=== PATIENT | female | born 1950 | race Native Hawaiian/Other Pacific Islander ===

== ENCOUNTER 2016-09-17 13:20 | Emergency (ER) | payer MEDICAID ==
[2016-09-17] MEDS ORDERED: TETANUS/DIPHTHERIA/PERTUSSIS 0.5 ML SYRINGE IM ONE ×2 (14:01→14:06)
[2016-09-17] MEDS ORDERED: CEPHALEXIN 250 MG CAPSULE PO STA (14:01)
[2016-09-17] MEDS ORDERED: CEPHALEXIN 250 MG CAPSULE PO ONE (14:06)
--- NOTE | 2016-09-17 14:55 | ED Physician Documentation ---
History of Present Illness - Stated complaint Stated Complaint: LEFT TOE PX - Chief complaint Chief Complaint: Ext Problem - Additonal information Additional information: hx from daughter 66 diabetic who does not check her blood sugars nor wear the special shoes that have been recommended for her feet and does not take insulin because it makes her back hurt has a small ulcer on each great toe the left has been hurting for a month, she attributes to an injury but looks like an infection no fever Review of Systems Constitutional: denies: Fever Skin: reports: Lesions Musculoskeletal: reports: Pain with weight bearing PD PAST MEDICAL HISTORY - Past Medical History Cardiovascular: Hypertension, High cholesterol Respiratory: None Neuro: CVA, Peripheral neuropathy Endocrine/Autoimmune: Type 2 diabetes GI: None 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 : None HEENT: None, Chronic vision loss Psych: Anxiety Musculoskeletal: None Derm: None - Past Surgical History Past Surgical History: No General: Appendectomy HEENT: Cataracts - Present Medications Home Medications: Ambulatory Orders Medication Instructions Recorded Confirmed Aspirin [Aspir 81] 81 mg PO DAILY 07/06/12 09/17/16 Furosemide 20 mg PO BID 07/06/12 09/17/16 Metformin HCl [Glumetza] 1,000 mg PO BID 07/06/12 09/17/16 Lisinopril 5 mg PO DAILY 08/23/14 09/17/16 Simvastatin [Zocor] 40 mg PO DAILY 08/23/14 09/17/16 Pregabalin [Lyrica] 100 mg ORAL TID 12/17/14 09/17/16 Cephalexin [Keflex] 500 mg PO Q6H #28 capsule 09/17/16 Glipizide 5 mg PO DAILY 09/17/16 09/17/16 - Allergies Allergies/Adverse Reactions: Allergies Allergy/AdvReac Type Severity Reaction Status Date / Time No Known Drug Allergies Allergy Verified 01/02/16 20:48 - Social History Does the pt smoke?: No Smoking Status: Never smoker Does the pt drink ETOH?: No Does the pt have substance abuse?: No - Immunizations Immunizations are current?: Yes - POLST Patient has POLST: No PD ED PE NORMAL - Vitals Vital signs reviewed: Yes - Cardiac Cardiac: RRR - Respiratory Respiratory: No respiratory distress, Clear bilaterally - Extremities Extremities: Other (L great toe whith a shallow crusted ulcer to the plantar aspect distal phalange with surrounding erythema and TTP, no streaking) Results - Vitals Vitals: Vital Signs - 24 hr 09/17/16 09/17/16 13:28 15:46 Temperature 35.8 C L 36.4 C L Heart Rate 82 82 Respiratory 16 20 Rate Blood Pressure 101/67 100/68 O2 Saturation 98 100 Oxygen O2 Source [] Room air O2 Source Room air - Labs Labs: Laboratory Tests 09/17/16 14:09 POC Whole Bld Glucose 307 H - Rads (name of study) L toes Radiology: See rad report (no gas, no osteo, no fx. Per rad hyperlucency with sclerotic edge prox metaphysis 5th MT coul be a fracture vs bone cyst (this is not where pt hurts, her pain is the 1st toe)) Departure - Departure Disposition: 01 Home, Self Care Clinical Impression: Diabetic foot infection Hyperglycemia due to type 2 diabetes mellitus Qualifiers: Diabetes mellitus event security officer insulin use: with event security officer use Qualified Code(s): E11.65 - Type 2 diabetes mellitus with hyperglycemia Condition: Fair Instructions: Diabetic Foot Ulcer Dc, ED Foot Care Diabetic Follow-Up: [facility] [Provider Group] (this week for an ER follow up) Prescriptions: Cephalexin [Keflex] 500 mg PO Q6H #28 capsule Comments: Your blood sugars are poorly controlled and your left big toe ulcer is infected. This is a big problem You could lose your toe all together if this infection and your blood sugars are not aggressively managed Please take the antibiotics as prescribed Take your diabetes medications as prescribed And follow up with your PMD for a wound check this week Return sooner if worse
[2016-09-17 15:46] VITALS: BP 100/68
--- NOTE | 2016-09-17 16:01 | XRAY Report ---
EXAM: LEFT TOE RADIOGRAPHY EXAM DATE: 09/17/2016 02:43 PM. CLINICAL HISTORY: Diabetic great toe ulcer. COMPARISON: None. TECHNIQUE: 3 views. FINDINGS: Bones: No discrete bony erosive, bony detected lesion or fracture identified. Joints: No significant degenerative process. No subluxations. Soft Tissues: Diffuse first toe soft tissue swelling. IMPRESSION: No discrete bony lesion to suggest osteomyelitis; if clinical indicated, further evaluati on with IV constant enhanced MRI would be helpful. Note: Focal ill-defined hyperlucency with sclerotic edge in the proximal metaphysis of the fifth meta tarsal bone, approximately 0.8 x 1.3 cm a single AP view visualized, this may represent subacute frac ture versus nonspecific cystic bony lesion. If clinical warranted, dedicated foot x-ray follow-up is recommended. [facility] Referring Provider Line: [phone] SITE ID: [id number]
== END 2016-09-17 16:13 | disposition home or self-care (01) ==
LOC: ED 13:20
DX: E11.69 Type 2 diabetes mellitus with other specified complication (principal); L08.89 Other specified local infections of the skin and subcutaneous tissue; E11.65 Type 2 diabetes mellitus with hyperglycemia; E11.42 Type 2 diabetes mellitus with diabetic polyneuropathy; I10 Essential (primary) hypertension; Z79.84 Long term (current) use of oral hypoglycemic drugs; Z79.82 Long term (current) use of aspirin; Z86.73 Personal history of transient ischemic attack (TIA), and cerebral infarction without residual deficits; Z23 Encounter for immunization
CPT/HCPCS: 73660; 90471; 90715; 99283; 99284; A9270

== ENCOUNTER 2016-10-14 08:00 | Outpatient (CLI) | payer MEDICAID ==
[2016-10-14 19:28] LABS: BASOPHILS # (AUTO) 0.1 10^3/uL (0.0-0.1); BASOPHILS % (AUTO) 0.9 %; EOSINOPHILS # (AUTO) 0.1 10^3/uL (0.0-0.7); EOSINOPHILS % (AUTO) 0.8 %; HCT - HEMATOCRIT 37.7 % (37.0-47.0); HGB - HEMOGLOBIN 12.1 g/dL (12.0-16.0); LYMPHOCYTES # (AUTO) 3.4 10^3/uL (1.5-3.5); LYMPHOCYTES % (AUTO) 28.1 %; MEAN CORPUSCULAR HEMOGLOBIN 28.3 pg (27.0-31.0); MEAN CORPUSCULAR HGB CONC 32.2 g/dL (32.0-36.0); MEAN CORPUSCULAR VOLUME 87.8 fL (81.0-99.0); MEAN PLATELET VOLUME 7.9 fL (7.9-10.8); NEUTROPHILS # (AUTO) 7.4 10^3/uL (1.5-6.6); NEUTROPHILS % (AUTO) 62.2 %; NUCLEATED RED BLOOD CELLS AUTO 0.2 /100WBC; RED BLOOD COUNT 4.29 10^6/uL (4.20-5.40); RED CELL DISTRIBUTION WIDTH 13.7 % (12.0-15.0); UNCORRECTED WHITE BLOOD COUNT 11.9 x10^3/uL; WHITE BLOOD COUNT 11.9 x10^3/uL (4.8-10.8)
[2016-10-14 19:48] LABS: BILIRUBIN,TOTAL 0.7 mg/dL (0.2-1.0); BUN - BLOOD UREA NITROGEN 25 mg/dL (6-20); CALCIUM 8.9 mg/dL (8.5-10.3); CARBON DIOXIDE - CO2 25 mmol/L (21-32); CHLORIDE 108 mmol/L (101-111); CHOL/HDL RATIO 4.8 (<4.4); CHOLESTEROL 209 mg/dL; CREATININE 1.1 mg/dL (0.4-1.0); GFR - MDRD 50 (>89); GLUCOSE 235 mg/dL (70-100); HDL CHOLESTEROL 44 mg/dL; POTASSIUM 4.3 mmol/L (3.5-5.0); SODIUM 139 mmol/L (135-145); TOTAL PROTEIN 7.5 g/dL (6.7-8.2); TRIGLYCERIDES 166 mg/dL; VLDL CHOLESTEROL 33 mg/dL
[2016-10-14 20:19] LABS: THYROID STIMULATING HORMONE 0.21 uIU/mL (0.34-5.60)
[2016-10-14 20:21] LABS: HEMOGLOBIN A1C 1.39 g/dL
== END 2016-10-14 08:01 | disposition home or self-care (01) ==
LOC: LAB.N 08:00
PROVIDERS: ATTEND Nurse Practitioner Gerontology
DX: E11.40 Type 2 diabetes mellitus with diabetic neuropathy, unspecified (principal); I10 Essential (primary) hypertension; E04.1 Nontoxic single thyroid nodule
CPT/HCPCS: 36415; 80053; 80061; 83036; 84439; 84443; 85025

== ENCOUNTER 2017-01-16 08:50 | Outpatient (CLI) | payer MEDICAID ==
[2017-01-16 12:52] LABS: CALCIUM 8.8 mg/dL (8.5-10.3); CREATININE 1.2 mg/dL (0.4-1.0); POTASSIUM 3.5 mmol/L (3.5-5.0)
[2017-01-16 13:19] LABS: HEMOGLOBIN A1C 1.33 g/dL
== END 2017-01-16 08:51 | disposition home or self-care (01) ==
LOC: LAB.N 08:50
PROVIDERS: ATTEND Family Medicine
DX: E11.40 Type 2 diabetes mellitus with diabetic neuropathy, unspecified (principal)
CPT/HCPCS: 36415; 80048; 83036

== ENCOUNTER 2017-01-20 12:56 | Emergency (ER) | payer MEDICAID ==
[2017-01-20 13:15] VITALS: BP 128/80
[2017-01-20] MEDS ORDERED: MECLIZINE 12.5 MG TABLET PO STA (13:38)
[2017-01-20] MEDS ORDERED: SODIUM CHLORIDE 0.9% 1,000 ML IV ONE (13:38)
--- NOTE | 2017-01-20 13:41 | ED Physician Documentation ---
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 : None HEENT: None, Chronic vision loss Psych: Anxiety Musculoskeletal: None Derm: None - Past Surgical History Past Surgical History: No General: Appendectomy HEENT: Cataracts - Present Medications Home Medications: Ambulatory Orders Medication Instructions Recorded Confirmed Aspirin [Aspir 81] 81 mg PO DAILY 07/06/12 01/20/17 Furosemide 20 mg PO BID 07/06/12 01/20/17 Metformin HCl [Glumetza] 1,000 mg PO BID 07/06/12 01/20/17 Lisinopril 5 mg PO DAILY 08/23/14 01/20/17 Simvastatin [Zocor] 40 mg PO DAILY 08/23/14 01/20/17 Pregabalin [Lyrica] 100 mg ORAL TID 12/17/14 01/20/17 Cephalexin [Keflex] 500 mg PO Q6H #28 capsule 09/17/16 01/20/17 Glipizide 5 mg PO DAILY 09/17/16 01/20/17 Cephalexin [Keflex] 500 mg PO Q6H #28 capsule 01/20/17 - Allergies Allergies/Adverse Reactions: Allergies Allergy/AdvReac Type Severity Reaction Status Date / Time No Known Drug Allergies Allergy Verified 01/20/17 13:15 - Social History Does the pt smoke?: No Smoking Status: Never smoker Does the pt drink ETOH?: No Does the pt have substance abuse?: No - Immunizations Immunizations are current?: Yes - POLST Patient has POLST: No PD ED PE NORMAL - Vitals Vital signs reviewed: Yes - General General: Alert and oriented X 3 - HEENT HEENT: PERRL, EOMI - Neck Neck: Supple, no meningeal sign - Cardiac Cardiac: RRR - Respiratory Respiratory: No respiratory distress, Clear bilaterally - Abdomen Abdomen: Soft, Non tender - Derm Derm: Normal color - Neuro Neuro: Alert and oriented X 3, social media manager 2-12 intact, No motor deficit, No sensory deficit, Normal speech, Other (NIHSS zero) Results - Vitals Vitals: Vital Signs - 24 hr 01/20/17 13:08 Temperature 36.3 C L Heart Rate 83 Respiratory 16 Rate Blood Pressure 128/80 O2 Saturation 99 Oxygen O2 Source [] Room air O2 Source Room air - EKG (time done) 1354 Rate: Rate (enter#) Rhythm: NSR Intervals: Normal ND QRS: Normal Ischemia: Normal ST segments - Labs Labs: Laboratory Tests 01/20/17 01/20/17 01/20/17 13:13 14:30 14:30 WBC 13.0 H RBC 4.36 Hgb 12.8 Hct 37.7 MCV 86.5 MCH 29.4 MCHC 34.0 RDW 12.4 Plt Count 357 MPV 7.0 L Neut # 9.3 H Lymph # 2.5 [place] # 1.0 Eos # 0.1 Baso # 0.2 H Absolute Nucleated RBC 0.01 Nucleated RBC % 0.1 Sodium 136 Potassium 4.4 Chloride 101 Carbon Dioxide 26 Anion Gap 9.0 BUN 24 H Creatinine 1.0 Estimated GFR (MDRD) 55 L Glucose 213 H POC Whole Bld Glucose 224 H Calcium 9.4 Troponin I Urine Color Urine Clarity Urine pH Ur Specific [place] Urine Protein Urine Glucose (UA) Urine Ketones Urine Occult Blood Urine Nitrite Urine Bilirubin Urine Urobilinogen Ur Leukocyte Esterase Urine RBC Urine WBC Ur Squamous Epith Cells Urine Bacteria Ur Microscopic Review Urine Culture Comments 01/20/17 01/20/17 14:30 15:30 WBC RBC Hgb Hct MCV MCH MCHC RDW Plt Count MPV Neut # Lymph # [place] # Eos # Baso # Absolute Nucleated RBC Nucleated RBC % Sodium Potassium Chloride Carbon Dioxide Anion Gap BUN Creatinine Estimated GFR (MDRD) Glucose POC Whole Bld Glucose Calcium Troponin I < 0.04 Urine Color YELLOW Urine Clarity HAZY Urine pH 6.0 Ur Specific [place] 1.010 Urine Protein NEGATIVE Urine Glucose (UA) 100 H Urine Ketones NEGATIVE Urine Occult Blood NEGATIVE Urine Nitrite POSITIVE H Urine Bilirubin NEGATIVE Urine Urobilinogen 0.2 (NORMAL) Ur Leukocyte Esterase NEGATIVE Urine RBC 0-5 Urine WBC 11-25 H Ur Squamous Epith Cells FEW Squamous Urine Bacteria Many H Ur Microscopic Review INDICATED Urine Culture Comments INDICATED - Rads (name of study) CXR Radiology: See rad report (no acute) PD MEDICAL DECISION MAKING - ED course ED course: better with IVF and meclizine also UTI VS normal moises lives with her will road test and if safely ambulates will dc on antibiotics pt fid fine on road test Departure - Departure Disposition: Home, Self Care Clinical Impression: UTI (urinary tract infection) Qualifiers: Urinary tract infection type: acute cystitis Hematuria presence: without hematuria Qualified Code(s): N30.00 - Acute cystitis without hematuria Condition: Good Instructions: ED UTI Cystitis Female Prescriptions: Cephalexin [Keflex] 500 mg PO Q6H #28 capsule Comments: Your blood work and EKG were fine You exam does not suggest a stroke I think your weakness is caused by a urine infection Although you are weak, your vital signs are fine and you were able to safely walk in the ER. So I think you can go home on antibiotics. Rest as much as possible. You will be weak for a few more days so be very careful getting up and walking so you don't fall down. You might want to get a walker at the pharmacy for extra support Please follow up with your PMD Monday for a recheck Return if worse over the holiday weekend
--- NOTE | 2017-01-20 14:34 | XRAY Preliminary Report ---
Exam: XR CHEST 2 VIEW PA/LAT IMPRESSION: No acute disease. [facility] SITE ID: [id number]
[2017-01-20] MEDS ORDERED: MECLIZINE 12.5 MG TABLET PO ONE (14:35)
--- NOTE | 2017-01-20 14:37 | XRAY Report ---
EXAM: CHEST RADIOGRAPHY EXAM DATE: 01/20/2017 02:27 PM. CLINICAL HISTORY: Weakness. COMPARISON: 11/12/2014. TECHNIQUE: 2 views. FINDINGS: Lungs/Pleura: No definite localized infiltrate, consolidation, effusion, or pneumothorax. Mediastinum: Mild cardiomegaly, probably unchanged. Upper lobe vessels not distended. Other: Mild scoliosis, degenerative changes. IMPRESSION: No acute disease. [facility] Referring Provider Line: [phone] SITE ID: [id number]
[2017-01-20 14:41] LABS: BASOPHILS # (AUTO) 0.2 10^3/uL (0.0-0.1); BASOPHILS % (AUTO) 1.2 %; EOSINOPHILS # (AUTO) 0.1 10^3/uL (0.0-0.7); EOSINOPHILS % (AUTO) 0.5 %; HCT - HEMATOCRIT 37.7 % (37.0-47.0); HGB - HEMOGLOBIN 12.8 g/dL (12.0-16.0); LYMPHOCYTES # (AUTO) 2.5 10^3/uL (1.5-3.5); LYMPHOCYTES % (AUTO) 18.9 %; MEAN CORPUSCULAR HEMOGLOBIN 29.4 pg (27.0-31.0); MEAN CORPUSCULAR VOLUME 86.5 fL (81.0-99.0); MONOCYTES % (AUTO) 7.6 %; NEUTROPHILS # (AUTO) 9.3 10^3/uL (1.5-6.6); NEUTROPHILS % (AUTO) 71.8 %; NUCLEATED RED BLOOD CELLS AUTO 0.1 /100WBC; RED BLOOD COUNT 4.36 10^6/uL (4.20-5.40); RED CELL DISTRIBUTION WIDTH 12.4 % (12.0-15.0)
[2017-01-20 14:54] LABS: CALCIUM 9.4 mg/dL (8.5-10.3); POTASSIUM 4.4 mmol/L (3.5-5.0)
[2017-01-20 16:32] LABS: BILIRUBIN,URINE NEGATIVE (NEGATIVE)
[2017-01-20 16:33] LABS: UA w/ MICROSCOPIC CHARGE YES
[2017-01-20 16:48] LABS: UR CULTURE IF IND INDICATED
[2017-01-20] MEDS ORDERED: cephALEXin 250 MG CAPSULE PO STA (16:58)
== END 2017-01-20 17:40 | disposition home or self-care (01) ==
LOC: ED 12:56
DX: N30.00 Acute cystitis without hematuria (principal); R53.1 Weakness; I10 Essential (primary) hypertension; E11.42 Type 2 diabetes mellitus with diabetic polyneuropathy; Z79.84 Long term (current) use of oral hypoglycemic drugs; E78.00 Pure hypercholesterolemia, unspecified; Z86.73 Personal history of transient ischemic attack (TIA), and cerebral infarction without residual deficits; Z79.82 Long term (current) use of aspirin
CPT/HCPCS: 71020; 80048; 81001; 84484; 85025; 87077; 87086; 87181; 93005; 99283; 99284; A9270; 81003

== ENCOUNTER 2018-05-28 08:00 | Outpatient (CLI) | payer MEDICAID ==
[2018-05-28 12:41] LABS: BASOPHILS # (AUTO) 0.1 10^3/uL (0.0-0.1); BASOPHILS % (AUTO) 1.3 %; EOSINOPHILS # (AUTO) 0.4 10^3/uL (0.0-0.7); EOSINOPHILS % (AUTO) 3.7 %; HGB - HEMOGLOBIN 13.2 g/dL (12.0-16.0); LYMPHOCYTES % (AUTO) 31.4 %; MEAN CORPUSCULAR HEMOGLOBIN 28.6 pg (27.0-31.0); MEAN CORPUSCULAR HGB CONC 32.6 g/dL (32.0-36.0); MEAN CORPUSCULAR VOLUME 87.7 fL (81.0-99.0); MONOCYTES # (AUTO) 0.7 10^3/uL (0.0-1.0); MONOCYTES % (AUTO) 6.9 %; NEUTROPHILS # (AUTO) 5.5 10^3/uL (1.5-6.6); NEUTROPHILS % (AUTO) 56.7 %; PLT - PLATELET COUNT 358 10^3/uL (130-450); RED BLOOD COUNT 4.62 10^6/uL (4.20-5.40); RED CELL DISTRIBUTION WIDTH 13.1 % (12.0-15.0); WHITE BLOOD COUNT 9.6 x10^3/uL (4.8-10.8)
[2018-05-28 13:10] LABS: HB2 TOTAL 14.6 g/dL; HEMOGLOBIN A1C 2.12 g/dL; HEMOGLOBIN A1C % 15.4 % (4.6-6.2)
[2018-05-28 13:22] LABS: ALBUMIN 3.7 g/dL (3.2-5.5); ALBUMIN/GLOBULIN RATIO 0.8 (1.0-2.2); ALKALINE PHOSPHATASE 117 IU/L (42-121); ALT ALANINE AMINOTRANSFERASE 14 IU/L (10-60); AST ASPARTATE AMINOTRANSFERASE 16 IU/L (10-42); BILIRUBIN,TOTAL 0.8 mg/dL (0.2-1.0); BUN - BLOOD UREA NITROGEN 26 mg/dL (6-20); CALCIUM 9.3 mg/dL (8.5-10.3); CARBON DIOXIDE - CO2 25 mmol/L (21-32); CHLORIDE 96 mmol/L (101-111); CHOL/HDL RATIO 5.6 (<4.4); CHOLESTEROL 239 mg/dL; GFR - MDRD 55 (>89); HDL CHOLESTEROL 43 mg/dL; LDL CHOLESTEROL,CALCULATED 144 mg/dL; LDL/HDL RATIO 3.3 (<4.4); SODIUM 130 mmol/L (135-145); TOTAL PROTEIN 8.5 g/dL (6.7-8.2); VLDL CHOLESTEROL 52 mg/dL
[2018-05-28 13:23] LABS: GLUCOSE 505 mg/dL (70-100)
== END 2018-05-28 08:01 | disposition home or self-care (01) ==
LOC: LAB.N 08:00
PROVIDERS: ATTEND Nurse Practitioner Gerontology
DX: E04.1 Nontoxic single thyroid nodule (principal); I10 Essential (primary) hypertension; E11.9 Type 2 diabetes mellitus without complications
CPT/HCPCS: 36415; 80053; 80061; 83036; 83721; 84443; 85025

== ENCOUNTER 2019-01-28 14:33 | Outpatient (CLI) | payer MEDICAID ==
[2019-01-28 20:42] LABS: HB2 TOTAL 12.2 g/dL; HEMOGLOBIN A1C 0.93 g/dL; HEMOGLOBIN A1C % 9.1 % (4.6-6.2)
== END 2019-01-28 23:59 | disposition home or self-care (01) ==
LOC: LAB.N 14:33
PROVIDERS: ATTEND Nurse Practitioner Gerontology
DX: E11.40 Type 2 diabetes mellitus with diabetic neuropathy, unspecified (principal)
CPT/HCPCS: 36415; 83036

== ENCOUNTER 2019-08-15 15:42 | Emergency (ER) | payer MEDICAID ==
[2019-08-15] MEDS ORDERED: SODIUM CHLORIDE 0.9% 1,000 ML IV STA ×2 (16:27→18:24)
[2019-08-15] MEDS ORDERED: ACETAMINOPHEN 325 MG TABLET PO STA (16:27)
--- NOTE | 2019-08-15 16:33 | ED Physician Documentation ---
History of Present Illness - Stated complaint Stated Complaint: BODY PAIN / CHILLS - Chief complaint Chief Complaint: Neuro - History obtained from History obtained from: Patient, Family - History of Present Illness Timing: How many weeks ago (1) Pain level max: 4 Pain level now: 2 - Additonal information Additional information: 69-year-old female states that she has been ill for the past week. Her daughter is translating for her, they declined a formal wrong address clerk. She states that she started having fevers last night. Was seen at [facility] emergency department yesterday and started on Macrobid for a UTI. She has had a mild cough, some runny nose and congestion as well. Reportedly normal blood work yesterday and normal chest x-ray. She was seen in the clinic today and because she said that her neck was hurting, they sent her here for possible meningitis. Review of Systems Constitutional: reports: Fever (100.4). denies: Chills Nose: reports: Rhinorrhea / runny nose, Congestion Throat: denies: Sore throat Respiratory: reports: Cough (Mild, dry) GI: denies: Abdominal Pain, Nausea, Vomiting, Diarrhea : denies: Dysuria, Frequency, Hesitancy Skin: denies: Rash Musculoskeletal: reports: Neck pain (Occasionally has pain in her neck). denies: Back pain Neurologic: reports: Headache (Has had intermittent headaches over the past week). 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 : None HEENT: None, Chronic vision loss Psych: Anxiety Musculoskeletal: None Derm: None - Past Surgical History Past Surgical History: No General: Appendectomy HEENT: Cataracts - Present Medications Home Medications: Ambulatory Orders Medication Instructions Recorded Confirmed Aspirin [Aspir 81] 81 mg PO DAILY 07/06/12 01/20/17 Furosemide 20 mg PO BID 07/06/12 01/20/17 Metformin HCl [Glumetza] 1,000 mg PO BID 07/06/12 01/20/17 Simvastatin [Zocor] 40 mg PO DAILY 08/23/14 01/20/17 lisinopriL [Lisinopril] 5 mg PO DAILY 08/23/14 01/20/17 Pregabalin [Lyrica] 100 mg ORAL TID 12/17/14 01/20/17 Cephalexin [Keflex] 500 mg PO Q6H #28 capsule 09/17/16 01/20/17 Glipizide 5 mg PO DAILY 09/17/16 01/20/17 Cephalexin [Keflex] 500 mg PO Q6H #28 capsule 01/20/17 Cefdinir 300 mg PO BID #20 capsule 08/15/19 - Allergies Allergies/Adverse Reactions: Allergies Allergy/AdvReac Type Severity Reaction Status Date / Time No Known Drug Allergies Allergy Verified 08/15/19 16:01 - Social History Does the pt smoke?: No Smoking Status: Never smoker Does the pt drink ETOH?: No Does the pt have substance abuse?: No - Immunizations Immunizations are current?: Yes - POLST Patient has POLST: No PD ED PE NORMAL - Vitals Vital signs reviewed: Yes - General General: Alert and oriented X 3, No acute distress, Well developed/nourished - HEENT HEENT: Atraumatic, PERRL, Ears normal, Moist mucous membranes - Neck Neck: Supple, no meningeal sign, Other (Full range of motion. No nuchal rigidity. Able to touch her chin fully to her chest.) - Cardiac Cardiac: RRR, Strong equal pulses - Respiratory Respiratory: No respiratory distress, Clear bilaterally - Abdomen Abdomen: Soft, Non tender, Non distended - Back Back: No spinal TTP - Derm Derm: Warm and dry - Extremities Extremities: No edema, No calf tenderness / cord - Neuro Neuro: Alert and oriented X 3, statistical financial analyst 2-12 intact, No motor deficit, No sensory deficit, Normal speech Eye Opening: Spontaneous Motor: Obeys Commands Verbal: Oriented GCS Score: 15 - Psych Psych: Normal mood, Normal affect Results - Vitals Vitals: Vital Signs - 24 hr 08/15/19 08/15/19 08/15/19 15:57 17:51 19:14 Temperature 38.1 C H Heart Rate 88 83 80 Respiratory 22 24 14 Rate Blood Pressure 150/118 H 135/66 H 127/68 O2 Saturation 100 98 99 Oxygen O2 Source [With Activity] Room air O2 Source Room air - Labs Labs: Laboratory Tests 08/15/19 08/15/19 08/15/19 16:46 16:46 16:46 WBC 7.0 RBC 4.71 Hgb 13.3 Hct 41.8 MCV 88.7 MCH 28.2 MCHC 31.8 L RDW 12.2 Plt Count 222 MPV 9.4 Neut # (Auto) 4.5 Lymph # (Auto) 1.8 [place] # (Auto) 0.6 Eos # (Auto) 0.0 Baso # (Auto) 0.0 Absolute Nucleated RBC 0.00 Nucleated RBC % 0.0 PT 12.1 INR 1.1 APTT 32.3 Sodium 137 Potassium 4.2 Chloride 103 Carbon Dioxide 22 Anion Gap 12.0 BUN 25 H Creatinine 1.5 H Estimated GFR (MDRD) 34 L Glucose 148 H Lactic Acid Calcium 8.5 Total Bilirubin 0.7 AST 23 ALT 14 Alkaline Phosphatase 79 Total Protein 8.8 H Albumin 3.9 Globulin 4.9 H Albumin/Globulin Ratio 0.8 L Lipase 74 H Urine Color Urine Clarity Urine pH Ur Specific [place] Urine Protein Urine Glucose (UA) Urine Ketones Urine Occult Blood Urine Nitrite Urine Bilirubin Urine Urobilinogen Ur Leukocyte Esterase Urine RBC Urine WBC Ur Squamous Epith Cells Urine Bacteria Ur Microscopic Review Urine Culture Comments 08/15/19 08/15/19 16:46 17:31 WBC RBC Hgb Hct MCV MCH MCHC RDW Plt Count MPV Neut # (Auto) Lymph # (Auto) [place] # (Auto) Eos # (Auto) Baso # (Auto) Absolute Nucleated RBC Nucleated RBC % PT INR APTT Sodium Potassium Chloride Carbon Dioxide Anion Gap BUN Creatinine Estimated GFR (MDRD) Glucose Lactic Acid 1.2 Calcium Total Bilirubin AST ALT Alkaline Phosphatase Total Protein Albumin Globulin Albumin/Globulin Ratio Lipase Urine Color YELLOW Urine Clarity CLEAR Urine pH 5.5 Ur Specific [place] 1.020 Urine Protein 30 H Urine Glucose (UA) >=1000 H Urine Ketones 15 H Urine Occult Blood TRACE-INTA Urine Nitrite NEGATIVE Urine Bilirubin NEGATIVE Urine Urobilinogen 0.2 (NORMAL) Ur Leukocyte Esterase NEGATIVE Urine RBC 6-10 H Urine WBC 6-10 H Ur Squamous Epith Cells FEW Squamous Urine Bacteria Rare Ur Microscopic Review INDICATED Urine Culture Comments INDICATED PD MEDICAL DECISION MAKING - ED course Complexity details: reviewed old records, reviewed results, re-evaluated patient, considered differential, d/w patient ED course: Patient had a chest x-ray earlier in the day that was normal. Reviewed her records from [facility]. Given IV fluids here as well as IV Rocephin. Also given a normal. She feels much better. Tolerating p.o. without difficulty and asking for food. No evidence of sepsis. Blood cultures were drawn. We will change her from Macrobid to cefdinir. No evidence of meningitis. Patient and family counseled regarding signs and symptoms for which I believe and urgent re-evaluation would be necessary. Patient with good understanding of and agreement to plan and is comfortable going home at this time This document was made in part using voice recognition software. While efforts are made to proofread this document, sound alike and grammatical errors may occur. Patient states that she had a COVID swab yesterday at [facility]. Does not want this repeated Departure - Departure Disposition: Home, Self Care Clinical Impression: Fever Qualifiers: Fever type: unspecified Qualified Code(s): R50.9 - Fever, unspecified UTI (urinary tract infection) Qualifiers: Urinary tract infection type: acute cystitis Hematuria presence: without hematuria Qualified Code(s): N30.00 - Acute cystitis without hematuria Condition: Good Instructions: ED UTI Cystitis Female Follow-Up: Britney Gonzalez ARNP [Primary Care Provider] - Within 1 week Prescriptions: Cefdinir 300 mg PO BID #20 capsule Comments: You can stop the other antibiotic and start the new when we gave you tonight. You can pick this up tomorrow. Return if you worsen. Discharge Date/Time: 08/15/19 19:30
[2019-08-15 17:04] LABS: BASOPHILS % (AUTO) 0.3 %; EOSINOPHILS % (AUTO) 0.1 %; HGB - HEMOGLOBIN 13.3 g/dL (12.0-16.0); LYMPHOCYTES # (AUTO) 1.8 10^3/uL (1.5-3.5); MEAN CORPUSCULAR HEMOGLOBIN 28.2 pg (27.0-31.0); MEAN CORPUSCULAR HGB CONC 31.8 g/dL (32.0-36.0); MEAN CORPUSCULAR VOLUME 88.7 fL (81.0-99.0); MEAN PLATELET VOLUME 9.4 fL (7.9-10.8); MONOCYTES # (AUTO) 0.6 10^3/uL (0.0-1.0); MONOCYTES % (AUTO) 9.1 %; NEUTROPHILS # (AUTO) 4.5 10^3/uL (1.5-6.6); NEUTROPHILS % (AUTO) 64.1 %; PLT - PLATELET COUNT 222 10^3/uL (130-450); RED BLOOD COUNT 4.71 10^6/uL (4.20-5.40); RED CELL DISTRIBUTION WIDTH 12.2 % (12.0-15.0)
[2019-08-15 17:10] LABS: INR 1.1 (0.8-1.2); PT - PROTHROMBIN TIME 12.1 secs (9.9-12.6)
[2019-08-15 17:15] LABS: ALBUMIN 3.9 g/dL (3.2-5.5); ALBUMIN/GLOBULIN RATIO 0.8 (1.0-2.2); BILIRUBIN,TOTAL 0.7 mg/dL (0.2-1.0); CALCIUM 8.5 mg/dL (8.5-10.3); CREATININE 1.5 mg/dL (0.4-1.0); TOTAL PROTEIN 8.8 g/dL (6.7-8.2)
[2019-08-15 17:18] LABS: PARTIAL THROMBOPLASTIN TIME 32.3 secs (24.9-33.3)
[2019-08-15 17:41] LABS: BILIRUBIN,URINE NEGATIVE (NEGATIVE); GLUCOSE, URINE (UA) >=1000 mg/dL (NEGATIVE); KETONES,URINE (UA) 15 mg/dL (NEGATIVE); LEUKOCYTE ESTERASE, URINE NEGATIVE (NEGATIVE); NITRITE,URINE NEGATIVE (NEGATIVE); OCCULT BLOOD,URINE TRACE-INTA (NEGATIVE); PH,URINE 5.5 PH (5.0-7.5); PROTEIN,URINE 30 mg/dL (NEGATIVE); UROBILINOGEN,URINE 0.2 (NORMAL) E.U./dL (NORMAL)
[2019-08-15 17:46] LABS: BACTERIA,URINE Rare /HPF (None Seen); CLARITY,URINE CLEAR (CLEAR); SQUAMOUS EPITHELIAL CELL,UR FEW Squamous (<= Few)
[2019-08-15] MEDS ORDERED: cefTRIAXone 1 GM VIAL IVP STA (18:26)
[2019-08-15 19:15] VITALS: BP 127/68
== END 2019-08-15 19:30 | disposition home or self-care (01) ==
LOC: ED 15:42
DX: N30.00 Acute cystitis without hematuria (principal); R51 Headache; M54.2 Cervicalgia; R05 Cough; I10 Essential (primary) hypertension; E11.9 Type 2 diabetes mellitus without complications; Z79.84 Long term (current) use of oral hypoglycemic drugs; Z79.82 Long term (current) use of aspirin; R06.02 Shortness of breath
CPT/HCPCS: 36415; 71045; 80053; 81001; 83605; 83690; 85025; 85610; 85730; 87040; 87086; 96361; 96374; 99283; 99284; A9270; 81003

== ENCOUNTER 2019-11-11 13:17 | Outpatient (CLI) | payer MEDICAID ==
[2019-11-11 19:34] LABS: BUN - BLOOD UREA NITROGEN 21 mg/dL (6-20); CARBON DIOXIDE - CO2 26 mmol/L (21-32); CHLORIDE 103 mmol/L (101-111); CHOL/HDL RATIO 5.1 (<4.4); CHOLESTEROL 253 mg/dL; GLUCOSE 178 mg/dL (70-100); HDL CHOLESTEROL 50 mg/dL; LDL CHOLESTEROL,CALCULATED 131 mg/dL; LDL/HDL RATIO 2.6 (<4.4); SODIUM 138 mmol/L (135-145); VLDL CHOLESTEROL 72 mg/dL
[2019-11-11 19:36] LABS: CREATININE,URINE 43.2 mg/dL; MICROALBUM/CREATININE RATIO,UR 247.7 ug/mg (<30.0); MICROALBUMIN,URINE 10.7 mg/dL (0-300.0)
[2019-11-11 20:01] LABS: HEMOGLOBIN A1c% 9.3 % (4.27-6.07)
== END 2019-11-11 23:59 | disposition home or self-care (01) ==
LOC: LAB.WCP 13:17
PROVIDERS: ATTEND Family Medicine
DX: E11.9 Type 2 diabetes mellitus without complications (principal); E78.5 Hyperlipidemia, unspecified
CPT/HCPCS: 36415; 80048; 80061; 82043; 82570; 83036; 83721

== ENCOUNTER 2019-12-30 09:55 | Outpatient (CLI) | payer MEDICAID ==
[2019-12-30 12:11] LABS: CALCIUM 9.5 mg/dL (8.5-10.3); CREATININE 1.4 mg/dL (0.4-1.0)
== END 2019-12-30 23:59 | disposition home or self-care (01) ==
LOC: LAB.WCP 09:55
PROVIDERS: ATTEND Nurse Practitioner
DX: E11.9 Type 2 diabetes mellitus without complications (principal)
CPT/HCPCS: 36415; 80048

== ENCOUNTER 2020-08-24 14:31 | Outpatient (CLI) | payer MEDICAID ==
[2020-08-24 17:59] LABS: BASOPHILS # (AUTO) 0.1 10^3/uL (0.0-0.1); BASOPHILS % (AUTO) 1.2 %; EOSINOPHILS # (AUTO) 0.1 10^3/uL (0.0-0.7); EOSINOPHILS % (AUTO) 1.4 %; HCT - HEMATOCRIT 37.2 % (37.0-47.0); HGB - HEMOGLOBIN 11.7 g/dL (12.0-16.0); LYMPHOCYTES # (AUTO) 3.4 10^3/uL (1.5-3.5); LYMPHOCYTES % (AUTO) 33.7 %; MEAN CORPUSCULAR HEMOGLOBIN 28.7 pg (27.0-31.0); MEAN CORPUSCULAR HGB CONC 31.5 g/dL (32.0-36.0); MEAN CORPUSCULAR VOLUME 91.2 fL (81.0-99.0); MEAN PLATELET VOLUME 9.9 fL (7.9-10.8); MONOCYTES # (AUTO) 0.7 10^3/uL (0.0-1.0); MONOCYTES % (AUTO) 6.6 %; NEUTROPHILS # (AUTO) 5.7 10^3/uL (1.5-6.6); NEUTROPHILS % (AUTO) 56.4 %; PLT - PLATELET COUNT 353 10^3/uL (130-450); RED BLOOD COUNT 4.08 10^6/uL (4.20-5.40); RED CELL DISTRIBUTION WIDTH 12.7 % (12.0-15.0)
[2020-08-24 18:24] LABS: ALBUMIN 3.6 g/dL (3.2-5.5); ALBUMIN/GLOBULIN RATIO 0.9 (1.0-2.2); ALKALINE PHOSPHATASE 87 IU/L (42-121); ALT ALANINE AMINOTRANSFERASE 11 IU/L (10-60); AST ASPARTATE AMINOTRANSFERASE 15 IU/L (10-42); BILIRUBIN,TOTAL 0.4 mg/dL (0.2-1.0); BUN - BLOOD UREA NITROGEN 33 mg/dL (6-20); CALCIUM 8.9 mg/dL (8.5-10.3); CARBON DIOXIDE - CO2 23 mmol/L (21-32); CHLORIDE 103 mmol/L (101-111); CHOL/HDL RATIO 6.3 (<4.4); CHOLESTEROL 247 mg/dL; CREATININE 1.7 mg/dL (0.4-1.0); GFR - MDRD 30 (>89); GLUCOSE 243 mg/dL (70-100); HDL CHOLESTEROL 39 mg/dL; LDL CHOLESTEROL,CALCULATED 164 mg/dL; LDL/HDL RATIO 4.2 (<4.4); POTASSIUM 5.7 mmol/L (3.5-5.0); SODIUM 136 mmol/L (135-145); TOTAL PROTEIN 7.7 g/dL (6.7-8.2); TRIGLYCERIDES 221 mg/dL; VLDL CHOLESTEROL 44 mg/dL
[2020-08-24 18:31] LABS: THYROID STIMULATING HORMONE 0.28 uIU/mL (0.34-5.60)
[2020-08-24 19:31] LABS: FREE T4 (FREE THYROXINE) 1.29 ng/dL (0.58-1.64)
[2020-08-24 20:59] LABS: ESTIMATED AVERAGE GLUCOSE 258 mg/dL (70-100); HEMOGLOBIN A1c% 10.6 % (4.27-6.07)
== END 2020-08-24 14:32 | disposition home or self-care (01) ==
LOC: LAB.N 14:31
PROVIDERS: ATTEND Family Medicine
DX: E11.9 Type 2 diabetes mellitus without complications (principal)
CPT/HCPCS: 36415; 80053; 80061; 82043; 82570; 83036; 83721; 84439; 84443; 85025

== ENCOUNTER 2020-09-04 08:00 | Outpatient (CLI) | payer MEDICAID ==
[2020-09-04 17:52] LABS: CREATININE,URINE 111.4 mg/dL; MICROALBUM/CREATININE RATIO,UR 52.1 ug/mg (<30.0); MICROALBUMIN,URINE 5.8 mg/dL (0-300.0)
== END 2020-09-04 23:59 | disposition home or self-care (01) ==
LOC: LAB.WCP 08:00
PROVIDERS: ATTEND Family Medicine
DX: E11.9 Type 2 diabetes mellitus without complications (principal)
CPT/HCPCS: 82043; 82570

== ENCOUNTER 2021-01-12 15:45 | Outpatient (CLI) | payer MEDICAID ==
[2021-01-12 18:39] LABS: CREATININE,URINE 192.4 mg/dL; MICROALBUMIN,URINE 12.9 mg/dL (0-300.0)
[2021-01-12 18:43] LABS: CALCIUM 9.9 mg/dL (8.5-10.3); CREATININE 1.3 mg/dL (0.4-1.0); POTASSIUM 4.8 mmol/L (3.5-5.0)
[2021-01-12 21:35] LABS: ESTIMATED AVERAGE GLUCOSE 286 mg/dL (70-100); HEMOGLOBIN A1c% 11.6 % (4.27-6.07)
== END 2021-01-12 23:59 ==
LOC: LAB.N 15:45
PROVIDERS: ATTEND Physician Assistant
DX: E11.40 Type 2 diabetes mellitus with diabetic neuropathy, unspecified (principal); L29.9 Pruritus, unspecified
CPT/HCPCS: 36415; 80048; 82043; 82570; 83036; 87070; 87181; 87205

== ENCOUNTER 2021-04-06 08:30 | Day surgery (SDC) | payer MEDICAID ==
[2021-04-06] MEDS ORDERED: LACTATED RINGERS 1,000 ML IV ONE ×2 (09:00→10:54)
--- NOTE | 2021-04-06 09:40 | ANESTHESIA ---
Pre-Anesthesia VS, & Labs - Diagnosis screening - Procedure colonoscopy Vital Signs: Temp Pulse Resp BP Pulse Ox 36.6 C 89 16 158/79 H 100 04/06/21 08:00 04/06/21 08:00 04/06/21 08:00 04/06/21 08:00 04/06/21 08:00 Height: 5 ft 6 in Weight (kg): 76.5 kg Body Mass Index: 27.2 BMI Classification: Overweight - NPO >8 hours Last Fluid Intake: am prep - Is Patient ?: No - Lab Results Current Lab Results: Laboratory Tests 04/06/21 09:00: POC Whole Bld Glucose 106 H Lab results reviewed: Yes Home Medications and Allergies Aspirin [Aspir 81] 81 mg PO DAILY 07/06/12 Furosemide 20 mg PO BID 07/06/12 Metformin HCl [Glumetza] 1,000 mg PO BID 07/06/12 Simvastatin [Zocor] 40 mg PO DAILY 08/23/14 lisinopriL [Lisinopril] 5 mg PO DAILY 08/23/14 Pregabalin [Lyrica] 100 mg ORAL TID 12/17/14 glipiZIDE [Glipizide] 5 mg PO DAILY 09/17/16 Allergies/Adverse Reactions: Allergies Allergy/AdvReac Type Severity Reaction Status Date / Time No Known Drug Allergies Allergy Verified 08/15/19 16:01 Anes History & Medical History - Anesthetic History Anesthesia Complications: reports: No previous complications Family history of Anesthesia Complications: Denies Family history of Malignant Hyperthermia: Denies - Medical History Cardiovascular: reports: Hypertension, High cholesterol Pulmonary: reports: None Gastrointestinal: reports: None Urinary: reports: None Musculoskeletal: reports: None Endocrine/Autoimmune: reports: Type 2 diabetes, HyPOthyroidism Blood Disorders: reports: None Skin: reports: None Smoking Status: Never smoker - Surgical History General: reports: Cholecystectomy Eyes Ears Nose Throat (EENT): reports: Cataracts Exam General: Alert, Oriented x3, Cooperative Dental: Dentures full Upper, Dentures full Lower Mouth Openin Fingerbreadth Neck Mobility: Normal Mallampati classification: II Thyromental Distance: 4-6 cm Respiratory: Lungs clear, Normal breath sounds, No respiratory distress Cardiovascular: Regular rate Neurological: Normal speech Mental/Cognitive Status: Alert/Oriented X3, Normal for patient Cognitive Status: Within normal limits Plan Anesthesia Type: Total IV Consent for Procedure(s) Verified and Reviewed: Yes Code Status: Attempt Resuscitation ASA classification: 2-Mild systemic disease Is this case an emergency?: No
[2021-04-06] MEDS ORDERED: PROPOFOL 500 MG/50 ML 500 MG/50 ML VIAL ONE (09:54)
--- NOTE | 2021-04-06 11:38 | ANESTHESIA POST OP EVALUATION ---
Anesthesia Post Eval - Post Anesthesia Eval Vitals: Last Vital Signs Temp 36.1 C L 04/06/21 10:54 Pulse 82 04/06/21 10:54 Resp 14 04/06/21 10:54 BP 107/60 04/06/21 10:54 Pulse Ox 100 04/06/21 10:54 CV Function Including HR & BP: Stable Pain Control: Satisfactory Nausea & Vomiting: Negative Mental Status: Baseline Respiratory Status: Airway Patent Hydration Status: Satisfactory Anesthesia Complications: None
[2021-04-06 11:59] VITALS: BP 151/83
== END 2021-04-06 08:31 | disposition home or self-care (01) ==
LOC: SDS 08:30
PROVIDERS: ATTEND Surgery
DX: Z12.11 Encounter for screening for malignant neoplasm of colon (principal); E11.22 Type 2 diabetes mellitus with diabetic chronic kidney disease; E11.65 Type 2 diabetes mellitus with hyperglycemia; I12.9 Hypertensive chronic kidney disease with stage 1 through stage 4 chronic kidney disease, or unspecified chronic kidney disease; N18.30 Chronic kidney disease, stage 3 unspecified; Z79.4 Long term (current) use of insulin; Z79.899 Other long term (current) drug therapy
CPT/HCPCS: 45378; J7120

== ENCOUNTER 2021-08-23 11:48 | Outpatient (CLI) | payer MEDICAID ==
[2021-08-23 17:55] LABS: CALCIUM 9.2 mg/dL (8.5-10.3); CREATININE 1.2 mg/dL (0.4-1.0); POTASSIUM 4.4 mmol/L (3.5-5.0)
[2021-08-23 18:19] LABS: MICROALBUM/CREATININE RATIO,UR 242.3 ug/mg (<30.0); MICROALBUMIN,URINE 39.5 mg/dL (0-300.0)
[2021-08-23 18:57] LABS: ESTIMATED AVERAGE GLUCOSE 143 mg/dL (70-100); HEMOGLOBIN A1c% 6.6 % (4.27-6.07)
== END 2021-08-23 11:49 | disposition home or self-care (01) ==
LOC: LAB.N 11:48
PROVIDERS: ATTEND Nurse Practitioner
DX: I50.31 Acute diastolic (congestive) heart failure (principal); E11.40 Type 2 diabetes mellitus with diabetic neuropathy, unspecified
CPT/HCPCS: 36415; 80048; 82043; 82570; 83036

== ENCOUNTER 2022-07-19 15:45 | Outpatient (CLI) | payer MEDICAID ==
[2022-07-19 17:52] LABS: BASOPHILS # (AUTO) 0.1 10^3/uL (0.0-0.1); BASOPHILS % (AUTO) 1.5 %; EOSINOPHILS # (AUTO) 0.1 10^3/uL (0.0-0.7); EOSINOPHILS % (AUTO) 1.4 %; HCT - HEMATOCRIT 36.2 % (37.0-47.0); HGB - HEMOGLOBIN 11.2 g/dL (12.0-16.0); LYMPHOCYTES % (AUTO) 26.9 %; MEAN CORPUSCULAR HEMOGLOBIN 26.9 pg (27.0-31.0); MEAN CORPUSCULAR HGB CONC 30.9 g/dL (32.0-36.0); MEAN CORPUSCULAR VOLUME 86.8 fL (81.0-99.0); MEAN PLATELET VOLUME 9.7 fL (7.9-10.8); MONOCYTES # (AUTO) 0.6 10^3/uL (0.0-1.0); MONOCYTES % (AUTO) 7.5 %; NEUTROPHILS # (AUTO) 4.6 10^3/uL (1.5-6.6); NEUTROPHILS % (AUTO) 62.3 %; PLT - PLATELET COUNT 249 10^3/uL (130-450); RED BLOOD COUNT 4.17 10^6/uL (4.20-5.40); RED CELL DISTRIBUTION WIDTH 17.1 % (12.0-15.0); WHITE BLOOD COUNT 7.3 x10^3/uL (4.8-10.8)
[2022-07-19 18:14] LABS: ALBUMIN 3.4 g/dL (3.2-5.5); ALBUMIN/GLOBULIN RATIO 0.7 (1.0-2.2); ALKALINE PHOSPHATASE 122 IU/L (42-121); ALT ALANINE AMINOTRANSFERASE 24 IU/L (10-60); AST ASPARTATE AMINOTRANSFERASE 43 IU/L (10-42); BILIRUBIN,TOTAL 1.3 mg/dL (0.2-1.0); BUN - BLOOD UREA NITROGEN 36 mg/dL (6-20); CARBON DIOXIDE - CO2 23 mmol/L (21-32); CHLORIDE 108 mmol/L (101-111); CHOL/HDL RATIO 3.2 (<4.4); CHOLESTEROL 129 mg/dL; CREATININE 1.3 mg/dL (0.4-1.0); GFR - MDRD 40 (>89); HDL CHOLESTEROL 40 mg/dL; LDL CHOLESTEROL,CALCULATED 81 mg/dL; POTASSIUM 4.2 mmol/L (3.5-5.0); SODIUM 140 mmol/L (135-145); TOTAL PROTEIN 8.3 g/dL (6.7-8.2); TRIGLYCERIDES 41 mg/dL; VLDL CHOLESTEROL 8 mg/dL
[2022-07-19 18:16] LABS: THYROID STIMULATING HORMONE 1.33 uIU/mL (0.34-5.60)
[2022-07-19 18:33] LABS: GLUCOSE 55 mg/dL (70-100)
[2022-07-19 20:50] LABS: ESTIMATED AVERAGE GLUCOSE 143 mg/dL (70-100); HEMOGLOBIN A1c% 6.6 % (4.27-6.07)
== END 2022-07-19 15:46 | disposition home or self-care (01) ==
LOC: LAB.N 15:45
PROVIDERS: ATTEND Nurse Practitioner Family
DX: I13.0 Hypertensive heart and chronic kidney disease with heart failure and stage 1 through stage 4 chronic kidney disease, or unspecified chronic kidney disease (principal); E11.22 Type 2 diabetes mellitus with diabetic chronic kidney disease; N18.32 Chronic kidney disease, stage 3b; I50.31 Acute diastolic (congestive) heart failure; E78.5 Hyperlipidemia, unspecified; Z79.4 Long term (current) use of insulin
CPT/HCPCS: 36415; 80050; 80061; 83036; 83721